=== PATIENT | male | born 2000 | race Asian ===

== ENCOUNTER 2021-10-24 00:20 | Emergency (ER) | payer MEDICAID ==
[~2021-10-24] VITALS: Ht 160 cm; Wt 59.1 kg
[2021-10-24 00:37] VITALS: BP 125/79
== END 2021-10-24 01:09 | disposition home or self-care (01) ==
LOC: EMS 00:22
DX: H72.91 Unspecified perforation of tympanic membrane, right ear (principal)
CPT/HCPCS: 99283; Z7502